=== PATIENT | male | born 1960 ===

== ENCOUNTER 2020-09-03 15:48 | Outpatient (CLI) | payer BC, SELFPAY ==
--- NOTE | ~2020-09-03 | XR_ITS ---
EXAMINATION: XR shoulder LT min 2V INDICATION: Left shoulder pain TECHNIQUE: Four views of the left shoulder are submitted. COMPARISON: None FINDINGS: Normal alignment. No fracture. There is mild glenohumeral and acromioclavicular joint osteo arthritis. Soft tissues are unremarkable. IMPRESSION: 1. Mild osteoarthritis without acute osseous abnormality. Reviewed, dictated and finalized at location A.
== END 2020-09-03 15:49 ==
PROVIDERS: PCP Physician Assistant; Visit Provider Nurse Practitioner Family
DX: M19.012 Primary osteoarthritis, left shoulder (principal)
CPT/HCPCS: 73030

== ENCOUNTER 2022-07-27 07:53 | Outpatient (CLI) | payer BC, SELFPAY ==
--- NOTE | ~2022-07-27 | XR_ITS ---
Right Knee Technique: AP, lateral, and sunrise views were obtained. Clinical History: Pain Findings: No fracture or dislocation is seen. Osseous alignment is anatomic. Mild tricompartmental de generative spurring present. Soft tissues are unremarkable. No joint effusion is seen. Impression: Mild tricompartmental degenerative spurring. Reviewed, dictated and finalized at location . Impression: Mild tricompartmental degenerative spurring.
== END 2022-07-27 07:54 ==
LOC: MICIMG 07:55
PROVIDERS: PCP Physician Assistant; Visit Provider Pain Medicine Pain Medicine
DX: M25.561 Pain in right knee (principal)
CPT/HCPCS: 73562